=== PATIENT | female | born 1980 | race Two or more races ===

== ENCOUNTER 2025-06-13 08:47 | Emergency (ER) | payer OTHER ==
[~2025-06-13] VITALS: Ht 162.6 cm; Wt 58.1 kg
[2025-06-13 09:06] VITALS: BP 98/58; O2SAT 97
[2025-06-13] MEDS ORDERED: KETOROLAC TROMETHAMINE 60 MG VIAL IM ONE ×2 (09:45→10:00)
[2025-06-13] MEDS ORDERED: CEFTRIAXONE SODIUM 1,000 MG VIAL IM ONE (09:45)
[2025-06-13] MEDS ORDERED: TETANUS & DIPHTHERIA TOX,ADULT 0.5 ML VIAL IM ONE (09:45)
[2025-06-13] MEDS ORDERED: CEFTRIAXONE SODIUM 1,000 MG VIAL ONE (10:01)
[2025-06-13] MEDS ORDERED: DIPHTH,PERTUSS(ACELL),TET VAC 0.5 ML SYRINGE IM ONE (10:01)
[2025-06-13] MEDS ORDERED: RAYOS5 MG PO (12:05)
[2025-06-13] MEDS ORDERED: KETO10TA2 PO (12:05)
[2025-06-13] MEDS ORDERED: CEPHALEXIN500 MG PO (12:05)
== END 2025-06-13 13:06 | disposition home or self-care (01) ==
LOC: ER 08:47
DX: G89.11 Acute pain due to trauma (principal); M25.571 Pain in right ankle and joints of right foot
CPT/HCPCS: 73600; 90471; 90714; J1670